=== PATIENT | male | born 1965 | race Caucasian/White ===

== ENCOUNTER → 2020-03-14 | Outpatient (CLI) | payer OTHER, SELFPAY ==
[2020-03-14 16:34] VITALS: BMI 32.8
[2020-03-14 22:27] LABS: ALB/GLOB Ratio 1.4 RATIO (0.9-2.4); AST(SGOT) 17 U/L (15-37); Alanine Aminotransfer ALT/SGPT 36 U/L (16-61); Albumin, Serum 4.2 g/dL (3.2-5.0); Alkaline Phosphatase 69 U/L (45-117); Anion Gap 4 (5-15); BUN 13 mg/dL (7-18); BUN/Creat Ratio 15.6 RATIO (10-20); Calcium,Total 9.1 mg/dL (8.5-10.1); Chloride 106 mmol/L (98-107); Cholesterol 238 mg/dL (200); Creatinine, Serum 0.84 mg/dL (0.70-1.30); EST Glomerular Filtration Rate 101 mL/min (>60); Est Glom Filt Rate - Afr Amer 122 mL/min (>60); Globulin 2.9 g/dL (2.2-4.2); Glucose 108 mg/dL (74-106); High Density Lipoprotein 26 mg/dL; Protein, Total 7.1 g/dL (6.4-8.2); Sodium Level 137 mmol/L (136-145); Triglycerides 383 mg/dL; Very Low Density Lipoprotein 77 mg/dL (5-40)
== END | disposition home or self-care (01) ==
PROVIDERS: Referring Provider Nurse Practitioner; Visit Provider Nurse Practitioner
DX: E78.1 Pure hyperglyceridemia (principal); I10 Essential (primary) hypertension
CPT/HCPCS: 80053; 80061

== ENCOUNTER → 2021-04-07 | Outpatient (CLI) | payer OTHER, SELFPAY ==
[2021-04-07 18:20] VITALS: BMI 33.4
[2021-04-07 22:32] LABS: Absolute Lymphocyte Count 2.08 X10^3/uL (0.83-4.51); Absolute Neutrophil Count 5.8 X10^3/uL (2.0-7.7); Basophil# 0.05 X10^3/uL; Basophil% 0.6 % (0-1); Eosinophil# 0.15 X10^3/uL; Eosinophils% 1.7 % (0-5); Hematocrit 46.4 % (40-54); Hemoglobin 15.5 g/dL (13.0-16.5); Lymphocyte # 2.08 X10^3/ul (0.83-4.51); Lymphocyte % 23.6 % (19-41); Mean Corp Hgb Conc 33.4 g/dL (32-36); Mean Corpuscular Hgb 30.9 pg (27.0-32.0); Mean Corpuscular Volume 92.6 fL (80-94); Mean Platelet Vol. 10.8 fl (6.2-12.0); Monocyte% 7.9 % (0-10); NRBC Flagged by Analyzer 0 % (0-5); Neutrophil # 5.82 X10^3/uL (2.7-7.7); Neutrophil % 65.9 % (47-70); Platelet Count 209 K/mm3 (150-450); RBC Distribution Width CV 11.9 % (11.6-14.6); RBC Distribution Width SD 40.9 fl (35.1-43.9); Red Blood Count 5.01 M/mm3 (4.6-6.2); White Blood Count 8.8 K/mm3 (4.4-11.0)
[2021-04-07 22:48] LABS: ALB/GLOB Ratio 1.2 RATIO (0.9-2.4); AST(SGOT) 22 U/L (15-37); Alanine Aminotransfer ALT/SGPT 45 U/L (16-61); Albumin, Serum 4.1 g/dL (3.2-5.0); Alkaline Phosphatase 72 U/L (45-117); Anion Gap 5 (5-15); BUN 15 mg/dL (7-18); BUN/Creat Ratio 16.5 RATIO (10-20); Calcium,Total 9.5 mg/dL (8.5-10.1); Chloride 109 mmol/L (98-107); Cholesterol 221 mg/dL (200); Creatinine, Serum 0.91 mg/dL (0.70-1.30); EST Glomerular Filtration Rate 91 mL/min (>60); Est Glom Filt Rate - Afr Amer 111 mL/min (>60); Globulin 3.3 g/dL (2.2-4.2); Glucose 117 mg/dL (74-106); High Density Lipoprotein 29 mg/dL; PSA,Total - Annual Screen 0.76 ng/mL (0.00-4.00); Potassium 4.1 mmol/L (3.5-5.1); Protein, Total 7.4 g/dL (6.4-8.2); Sodium Level 142 mmol/L (136-145); Triglycerides 278 mg/dL; Very Low Density Lipoprotein 56 mg/dL (5-40)
== END | disposition home or self-care (01) ==
PROVIDERS: Visit Provider Nurse Practitioner
DX: E78.1 Pure hyperglyceridemia (principal); R35.0 Frequency of micturition
CPT/HCPCS: 80053; 80061; 84153; 85025; G0103

== ENCOUNTER → 2022-04-20 | Outpatient (CLI) | payer BC, SELFPAY ==
[2022-04-20 22:18] LABS: Absolute Lymphocyte Count 2.78 X10^3/uL (0.83-4.51); Absolute Neutrophil Count 5.9 X10^3/uL (2.0-7.7); Basophil# 0.06 X10^3/uL; Basophil% 0.6 % (0-1); Eosinophil# 0.15 X10^3/uL; Eosinophils% 1.6 % (0-5); Hematocrit 46.5 % (40-54); Hemoglobin 15.9 g/dL (13.0-16.5); Lymphocyte # 2.78 X10^3/ul (0.83-4.51); Mean Corp Hgb Conc 34.2 g/dL (32-36); Mean Corpuscular Hgb 32.3 pg (27.0-32.0); Mean Corpuscular Volume 94.5 fL (80-94); Mean Platelet Vol. 11.9 fl (6.2-12.0); Monocyte# 0.62 X10^3/uL; Monocyte% 6.5 % (0-10); NRBC Flagged by Analyzer 0 % (0-5); Neutrophil # 5.93 X10^3/uL (2.7-7.7); Platelet Count 194 K/mm3 (150-450); RBC Distribution Width CV 12.3 % (11.6-14.6); RBC Distribution Width SD 42.8 fl (35.1-43.9); Red Blood Count 4.92 M/mm3 (4.6-6.2); White Blood Count 9.6 K/mm3 (4.4-11.0)
[2022-04-20 22:50] LABS: ALB/GLOB Ratio 1.3 RATIO (0.9-2.4); AST(SGOT) 21 U/L (15-37); Alanine Aminotransfer ALT/SGPT 40 U/L (16-61); Albumin, Serum 4.3 g/dL (3.2-5.0); Alkaline Phosphatase 70 U/L (45-117); Anion Gap 3 (5-15); BUN 13 mg/dL (7-18); BUN/Creat Ratio 13.2 RATIO (10-20); Calcium,Total 9.6 mg/dL (8.5-10.1); Chloride 109 mmol/L (98-107); Cholesterol 218 mg/dL (200); Creatinine, Serum 0.98 mg/dL (0.70-1.30); EST Glomerular Filtration Rate 83 mL/min (>60); Est Glom Filt Rate - Afr Amer 100 mL/min (>60); Globulin 3.2 g/dL (2.2-4.2); Glucose 106 mg/dL (74-106); High Density Lipoprotein 30 mg/dL; PSA,Total - Annual Screen 1.66 ng/mL (0.00-4.00); Potassium 3.8 mmol/L (3.5-5.1); Protein, Total 7.5 g/dL (6.4-8.2); Sodium Level 141 mmol/L (136-145); Triglycerides 231 mg/dL; Very Low Density Lipoprotein 46 mg/dL (5-40)
== END | disposition home or self-care (01) ==
PROVIDERS: Visit Provider Nurse Practitioner
DX: Z12.5 Encounter for screening for malignant neoplasm of prostate (principal); B35.1 Tinea unguium; I10 Essential (primary) hypertension; E78.1 Pure hyperglyceridemia; R35.0 Frequency of micturition
CPT/HCPCS: 80053; 80061; 84153; 85025; G0103

== ENCOUNTER → 2023-05-19 | Outpatient (CLI) | payer BC, SELFPAY ==
[2023-05-19 21:56] LABS: Absolute Lymphocyte Count 2.25 X10^3/uL (0.83-4.51); Absolute Neutrophil Count 5.7 X10^3/uL (2.0-7.7); Basophil# 0.04 X10^3/uL; Basophil% 0.5 % (0-1); Eosinophil# 0.15 X10^3/uL; Eosinophils% 1.7 % (0-5); Hematocrit 47.6 % (40-54); Hemoglobin 16.4 g/dL (13.0-16.5); Lymphocyte # 2.25 X10^3/ul (0.83-4.51); Lymphocyte % 25.3 % (19-41); Mean Corp Hgb Conc 34.5 g/dL (32-36); Mean Corpuscular Hgb 32.2 pg (27.0-32.0); Mean Corpuscular Volume 93.5 fL (80-94); Mean Platelet Vol. 10.9 fl (6.2-12.0); Monocyte# 0.69 X10^3/uL; Monocyte% 7.8 % (0-10); NRBC Flagged by Analyzer 0 % (0-5); Neutrophil # 5.72 X10^3/uL (2.7-7.7); Neutrophil % 64.4 % (47-70); Platelet Count 258 K/mm3 (150-450); RBC Distribution Width CV 11.9 % (11.6-14.6); RBC Distribution Width SD 41.1 fl (35.1-43.9); Red Blood Count 5.09 M/mm3 (4.6-6.2); White Blood Count 8.9 K/mm3 (4.4-11.0)
[2023-05-19 22:15] LABS: ALB/GLOB Ratio 1.3 RATIO (0.9-2.4); AST(SGOT) 17 U/L (15-37); Alanine Aminotransfer ALT/SGPT 35 U/L (16-61); Albumin, Serum 4.2 g/dL (3.2-5.0); Alkaline Phosphatase 72 U/L (45-117); Anion Gap 3 (5-15); BUN 17 mg/dL (7-18); BUN/Creat Ratio 14.8 RATIO (10-20); Calcium,Total 9.4 mg/dL (8.5-10.1); Chloride 110 mmol/L (98-107); Cholesterol 247 mg/dL (200); Creatinine, Serum 1.15 mg/dL (0.70-1.30); EST Glomerular Filtration Rate 69 mL/min (>60); Est Glom Filt Rate - Afr Amer 84 mL/min (>60); Globulin 3.3 g/dL (2.2-4.2); Glucose 112 mg/dL (74-106); High Density Lipoprotein 35 mg/dL; PSA,Total - Annual Screen 1.09 ng/mL (0.00-4.00); Protein, Total 7.5 g/dL (6.4-8.2); Sodium Level 140 mmol/L (136-145); Triglycerides 390 mg/dL; Very Low Density Lipoprotein 78 mg/dL (5-40)
== END | disposition home or self-care (01) ==
PROVIDERS: Visit Provider Nurse Practitioner
DX: I10 Essential (primary) hypertension (principal); E78.1 Pure hyperglyceridemia; R35.0 Frequency of micturition
CPT/HCPCS: 80053; 80061; 84153; 85025; G0103

== ENCOUNTER → 2023-12-28 | Outpatient (CLI) | payer BC, SELFPAY ==
[2023-12-28 20:29] LABS: Absolute Lymphocyte Count 1.76 X10^3/uL (0.83-4.51); Absolute Neutrophil Count 8.3 X10^3/uL (2.0-7.7); Basophil# 0.04 X10^3/uL; Basophil% 0.4 % (0-1); Eosinophil# 0.19 X10^3/uL; Eosinophils% 1.7 % (0-5); Hematocrit 46.4 % (40-54); Hemoglobin 15.6 g/dL (13.0-16.5); Lymphocyte # 1.76 X10^3/ul (0.83-4.51); Lymphocyte % 15.6 % (19-41); Mean Corp Hgb Conc 33.6 g/dL (32-36); Mean Corpuscular Hgb 30.5 pg (27.0-32.0); Mean Corpuscular Volume 90.8 fL (80-94); Mean Platelet Vol. 10.7 fl (6.2-12.0); Monocyte# 0.97 X10^3/uL; Monocyte% 8.6 % (0-10); NRBC Flagged by Analyzer 0 % (0-5); Neutrophil # 8.26 X10^3/uL (2.7-7.7); Neutrophil % 73.3 % (47-70); Platelet Count 198 K/mm3 (150-450); RBC Distribution Width CV 11.8 % (11.6-14.6); RBC Distribution Width SD 39.4 fl (35.1-43.9); Red Blood Count 5.11 M/mm3 (4.6-6.2); White Blood Count 11.3 K/mm3 (4.4-11.0)
[2023-12-28 20:59] LABS: ALB/GLOB Ratio 1.2 RATIO (0.9-2.4); AST(SGOT) 16 U/L (15-37); Alanine Aminotransfer ALT/SGPT 30 U/L (16-61); Alkaline Phosphatase 79 U/L (45-117); Anion Gap 5 (5-15); BUN 13 mg/dL (7-18); BUN/Creat Ratio 16.2 RATIO (10-20); Calcium,Total 9.2 mg/dL (8.5-10.1); Chloride 107 mmol/L (98-107); EST Glomerular Filtration Rate 105 mL/min (>60); Est Glom Filt Rate - Afr Amer 127 mL/min (>60); Globulin 3.2 g/dL (2.2-4.2); Glucose 129 mg/dL (74-106); Potassium 3.6 mmol/L (3.5-5.1); Protein, Total 7.2 g/dL (6.4-8.2); Sodium Level 138 mmol/L (136-145)
== END | disposition home or self-care (01) ==
PROVIDERS: PCP Nurse Practitioner; Visit Provider Nurse Practitioner
DX: K62.5 Hemorrhage of anus and rectum (principal); K64.9 Unspecified hemorrhoids; K57.92 Diverticulitis of intestine, part unspecified, without perforation or abscess without bleeding
CPT/HCPCS: 80053; 84443; 85025

== ENCOUNTER → 2024-09-11 | Outpatient (CLI) | payer BC, SELFPAY ==
[2024-09-11 22:02] LABS: Absolute Lymphocyte Count 1.96 X10^3/uL (0.83-4.51); Absolute Neutrophil Count 6.4 X10^3/uL (2.0-7.7); Basophil# 0.06 X10^3/uL; Basophil% 0.6 % (0-1); Eosinophil# 0.35 X10^3/uL; Eosinophils% 3.7 % (0-5); Hematocrit 45.2 % (40-54); Hemoglobin 15.4 g/dL (13.0-16.5); Lymphocyte # 1.96 X10^3/ul (0.83-4.51); Lymphocyte % 20.7 % (19-41); Mean Corp Hgb Conc 34.1 g/dL (32-36); Mean Corpuscular Volume 91.1 fL (80-94); Mean Platelet Vol. 11.2 fl (6.2-12.0); Monocyte# 0.68 X10^3/uL; Monocyte% 7.2 % (0-10); NRBC Flagged by Analyzer 0 % (0-5); Neutrophil # 6.38 X10^3/uL (2.7-7.7); Neutrophil % 67.5 % (47-70); Platelet Count 204 K/mm3 (150-450); RBC Distribution Width CV 11.9 % (11.6-14.6); RBC Distribution Width SD 39.9 fl (35.1-43.9); Red Blood Count 4.96 M/mm3 (4.6-6.2); White Blood Count 9.5 K/mm3 (4.4-11.0)
[2024-09-11 22:05] LABS: ALB/GLOB Ratio 1.4 RATIO (0.9-2.4); AST(SGOT) 14 U/L (15-37); Alanine Aminotransfer ALT/SGPT 26 U/L (16-61); Albumin, Serum 4.1 g/dL (3.2-5.0); Alkaline Phosphatase 70 U/L (45-117); Anion Gap 6 (5-15); BUN 16 mg/dL (7-18); BUN/Creat Ratio 19.8 RATIO (10-20); Calcium,Total 9.3 mg/dL (8.5-10.1); Chloride 107 mmol/L (98-107); Cholesterol 140 mg/dL (200); Creatinine, Serum 0.81 mg/dL (0.70-1.30); EST Glomerular Filtration Rate 103 mL/min (>60); Est Glom Filt Rate - Afr Amer 125 mL/min (>60); Globulin 2.9 g/dL (2.2-4.2); Glucose 124 mg/dL (74-106); High Density Lipoprotein 40 mg/dL; PSA,Total - Annual Screen 1.16 ng/mL (0.00-4.00); Potassium 3.8 mmol/L (3.5-5.1); Sodium Level 139 mmol/L (136-145); Triglycerides 231 mg/dL; Very Low Density Lipoprotein 46 mg/dL (5-40)
== END | disposition home or self-care (01) ==
PROVIDERS: PCP Nurse Practitioner; Referring Provider Nurse Practitioner; Visit Provider Nurse Practitioner
DX: I10 Essential (primary) hypertension (principal); E78.1 Pure hyperglyceridemia; R35.0 Frequency of micturition; Z12.5 Encounter for screening for malignant neoplasm of prostate
CPT/HCPCS: 80053; 80061; 84153; 85025; G0103

== ENCOUNTER → 2025-07-13 | Outpatient (CLI) | payer BC, SELFPAY ==
--- OUTSIDE RECORDS SUMMARY | 2025-07-13 21:48 | XMS RPT_ITS | CCD ---
Author Organization [facility] Inform ion [facility] Care Team Providers Care Customer Support Consultant Name Role Phone JP JUÁREZ Attending Juliette CHOWDHURY, IBIS Primary Care Unavailable MARQUITA, JP Attending Juliette CHOWDHURY, IBIS Primary Care Unavailable MARQUITA, JP Attending Juliette CHOWDHURY, IBIS Primary Care Unavailable MARQUITA, JP Attending Juliette CHOWDHURY, IBIS Primary Care Unavailable MARQUITA, JP Attending Juliette CHOWDHURY, IBIS Primary Care Unavailable MARQUITA, JP Attending Juliette CHOWDHURY, IBIS Primary Care Unavailable JAVIER HARMAN Attending Unavailable IBIS CHOWDHURY L Referring Unavailable Mak CONTR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, Ibis Attending Unavailable Mak CONTR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, Ibis Referring Unavailable Mak CONTR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, Ibis Primary Care Unavailable Mak CONTR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, Ibis Attending Unavailable Mak CONTR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, Ibis Primary Care Unavailable Medications Current Medications Medication Drug Class(es) Dates Sig (Normalized) Sig (Original) apple cider vinegar 500 mg oral tablet (2 sources) Start: 04-20-2022 Apple Cider Vinegar Active MG PO April 20, 2022 12:00am cefdinir 300 mg oral capsule (1 source) Cephalosporin Antibacterial Start: 12-28-2023 take 300 mg by mouth twice daily Cefdinir Active 300 MG PO TWICE A DAY December 28, 2023 12:00am 24 hr niacin 750 mg extended release oral tablet (2 sources) Nicotinic Acid Start: 07-28-2018 take 1 tablet by mouth every twenty-four hours at bedtime Niacin (Niaspan Extended-Release) 750 mg tablet extended release 24 hr Active 750 MG PO AT BEDTIME July 28, 2018 1:00am omeprazole 20 mg delayed release oral capsule (2 sources) Proton Pump Inhibitor Start: 07-28-2018 take 10 mg by mouth once daily Omeprazole Active 10 MG PO DAILY July 28, 2018 1:00am rosuvastatin calcium 10 mg oral tablet (1 source) HMG-CoA Reductase Inhibitor Start: 09-15-2023 take 10 mg by mouth once daily Rosuvastatin Active 10 MG PO DAILY 90 September 15, 2023 1:00am Completed/Discontinued Medications Medication Drug Class(es) Dates Sig (Normalized) Sig (Original) [id number] 200 actuat albuterol 0.09 mg/actuat metered dose inhaler (4 sources) beta2-Adrenergic Agonist Start: 01-15-2021 End: 05-19-2023 take 1 puff(s) by inhalation every four hours Albuterol Sulfate (Ventolin Hfa) 90 mcg/actuation HFA aerosol inhaler Discontinued 2 PUFF INHALATION Q4H 6.7 90 April 07, 2021 6:32pm May 19, 2023 5:01pm amLODIPine 5 mg oral tablet (14 sources) Dihydropyridine Calcium Channel Pretty Start: 07-28-2018 End: 05-19-2023 take 5 mg by mouth once daily Amlodipine Discontinued 5 MG PO DAILY April 20, 2022 5:38pm May 19, 2023 5:03pm amoxicillin 875 mg / clavulanate 125 mg oral tablet (10 sources) Penicillin-class Antibacterial Start: 03-29-2020 End: 04-07-2021 take 1 tablet by mouth twice daily Amoxicillin-Pot Clavulanate Discontinued 1 TABLET PO TWICE A DAY January 15, 2021 3:57pm April 07, 2021 6:21pm Start: 12-07-2018 End: 03-14-2020 take 1 tablet by mouth twice daily Amoxicillin-Pot Clavulanate Discontinued 1 TABLET PO TWICE A DAY December 07, 2018 5:01pm March 14, 2020 4:38pm Start: 07-28-2018 End: 11-02-2018 take 1 tablet by mouth twice daily Amoxicillin-Pot Clavulanate Discontinued 1 TABLET PO TWICE A DAY July 28, 2018 1:00am November 02, 2018 4:45pm azithromycin 250 mg oral tablet (2 sources) Macrolide Antimicrobial Start: 04-07-2021 End: 04-12-2021 Azithromycin Discontinued 250 MG PO daily 6 April 07, 2021 12:00am April 12, 2021 12:01am 2 po qd for 1 day then 1 po qd for 4 days with food or after eating fenofibrate 160 mg oral tablet (16 sources) Peroxisome Proliferator Receptor alpha Agonist Start: 07-28-2018 End: 09-15-2023 take 1 tablet by mouth once daily fenofibrate 160 mg tablet Discontinued 160 MG PO DAILY February 01, 2019 7:26pm March 01, 2019 6:02pm metroNIDAZOLE 250 mg oral tablet (1 source) Nitroimidazole Antimicrobial Start: 09-15-2023 End: 09-25-2023 take 250 mg by mouth three times daily Metronidazole Discontinued 250 MG PO THREE TIMES A DAY 28 06September 15, 2023 1:00am September 25, 2023 1:48am terbinafine 250 mg oral tablet (2 sources) Allylamine Antifungal Start: 04-20-2022 End: 05-19-2023 take 250 mg by mouth once daily Terbinafine Hcl Discontinued 250 MG PO DAILY April 20, 2022 12:00am May 19, 2023 5:02pm Problems Active Problems Problem Classification Problem Date Documented Da te Episodic/Chronic Abdominal pain (1 source) Lower abdominal pain; Translations: [Lower abdominal pain, unspecified] 09-15-2023 Episodic Anal and rectal conditions (2 sources) Incomplete rectal prolapse; Translations: [Rectal prolapse] 11-02-2018 Episodic Disorders of lipid metabolism (2 sources) Hypertriglyceridemi a; Translations: [Pure hyperglyceridemia] 03-01-2019 Chronic Diverticulosis and diverticulitis (1 source) Diverticulitis; Translations: [Diverticulitis of intestine, part unspecified, without perforation or abscess without bleeding] 09-15-2023 Chronic Essential hypertension (3 sources) Hypertensive disorder; Translations: [Essential (primary) hypertension] Onset: 10-02-2024 03-01-2019 Chronic Genitourinary symptoms and ill-defined conditions (2 sources) Increased frequency of urination; Translations: [Frequency of micturition] 04-07-2021 Episodic Hemorrhoids (1 source) Hemorrhoids; Translations: [Unspecified hemorrhoids] 12-29-2023 Episodic Mycoses (2 sources) Onychomycosis; Translations: [Tinea unguium] 04-20-2022 Episodic Other connective tissue disease (1 source) Plantar fasciitis; Translations: [Plantar fascial fibromatosis] 05-20-2023 Episodic Other connective tissue disease (2 sources) Foot pain; Translations: [Pain in left foot] 05-20-2023 Episodic Other connective tissue disease (1 source) Plantar fasciitis of right foot; Translations: [Plantar fascial fibromatosis] 05-20-2023 Episodic Other ear and sense organ disorders (2 sources) Pain of ear structure; Translations: [Otalgia, unspecified ear] 03-29-2020 Episodic Other lower respiratory disease (2 sources) Cough; Translations: [Cough] 12-07-2018 Episodic Other upper respiratory infections (2 sources) Maxillary sinusitis; Translations: [Chronic maxillary sinusitis] 12-07-2018 Chronic Other upper respiratory infections (2 sources) Acute maxillary sinusitis; Translations: [Acute maxillary sinusitis, unspecified] 03-29-2020 Episodic Otitis media and related conditions (2 sources) Acute left otitis media; Translations: [Otitis media, unspecified, left ear] 07-28-2018 Episodic Past or Other Problems Problem Classification Problem Date Documented Da te Episodic/Chronic Gastrointestinal hemorrhage (4 sources) Rectal hemorrhage; Translations: [Hemorrhage of anus and rectum] Onset: 01-03-2024 11-02-2018 Episodic Unclassified (2 sources) 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, [address] Absolute Neut 6.4 X10 3/uL Normal 2.0-7.7 [facility] Comment on above: Performed By: #### L 501.9910, L500.4100, L500.4050, L100.0100 #### [facility] [address] [place], [address] Basophils/100 WBC (Bld) 0.6 % Normal 0-[address] [facility] Comment on above: Performed By: #### L 501.9910, L500.4100, L500.4050, L100.0100 #### [facility] [address] [place], [address] Eosinophils/100 WBC (Bld) 3.7 % Normal 0-5 [facility] Comment on above: Performed By: #### L 501.9910, L500.4100, L500.4050, L100.0100 #### [facility] [address] [place], [address] Erythrocyte distribution width (RBC) [Ratio] 11.9 % Normal 11.6-14.6 [facility] Comment on above: Performed By: #### L 501.9910, L500.4100, L500.4050, L100.0100 #### [facility] [address] [place], [address] Hematocrit (Bld) [Volume fraction] 45.2 % Normal 40-54 [facility] Comment on above: Performed By: #### L 501.9910, L500.4100, L500.4050, L100.0100 #### [facility] [address] [place], [address] Hemoglobin (Bld) [Mass/Vol] 15.4 g/dL Normal 13.0-16.5 [facility] Comment on above: Performed By: #### L 501.9910, L500.4100, L500.4050, L100.0100 #### [facility] [address] [place], [address] IG% 0.300 Normal 0.0-0.9 [facility] Comment on above: Result Comment: IG% - Immature Granulocytes (promyelocytes, myelocytes and metamyelocytes) > 1% indicates that a LEFT SHIFT is Present. Performed By: #### L 501.9910, L500.4100, L500.4050, L100.0100 #### [facility] [address] [place], [address] Lymphocytes/100 WBC (Bld) 20.7 % Normal 19-41 [facility] Comment on above: Performed By: #### L 501.9910, L500.4100, L500.4050, L100.0100 #### [facility] [address] [place], [address] MCH (RBC) [Entitic mass] 31.0 pg Normal 27.0-32.0 [facility] Comment on above: Performed By: #### L 501.9910, L500.4100, L500.4050, L100.0100 #### [facility] [address] [place], [address] MCHC (RBC) [Mass/Vol] 34.1 g/dL Normal 32-36 [facility] Comment on above: Performed By: #### L 501.9910, L500.4100, L500.4050, L100.0100 #### [facility] [address] [place], [address] MCV (RBC) [Entitic vol] 91.1 fL Normal 80-[address] [facility] Comment on above: Performed By: #### L 501.9910, L500.4100, L500.4050, L100.0100 #### [facility] [address] [place], [address] Monocytes/100 WBC (Bld) 7.2 % Normal 0-[address] [facility] Comment on above: Performed By: #### L 501.9910, L500.4100, L500.4050, L100.0100 #### [facility] [address] [place], [address] Neutrophils/100 WBC (Bld) 67.5 % Normal 47-70 [facility] Comment on above: Performed By: #### L 501.9910, L500.4100, L500.4050, L100.0100 #### [facility] [address] [place], [address] Nucleated RBC (Bld) [#/Vol] 0 10*3/uL Normal 0-5 [facility] Comment on above: Performed By: #### L 501.9910, L500.4100, L500.4050, L100.0100 #### [facility] [address] [place], [address] Platelet mean volume (Bld) [Entitic vol] 11.2 fL Normal 6.2-12.0 [facility] Comment on above: Performed By: #### L 501.9910, L500.4100, L500.4050, L100.0100 #### [facility] [address] [place], [address] Platelets (Bld) [#/Vol] 204 10*3/uL Normal 150-450 [facility] Comment on above: Performed By: #### L 501.9910, L500.4100, L500.4050, L100.0100 #### [facility] [address] [place], [address] RBC (Bld) [#/Vol] 4.96 10*6/uL Normal 4.6-6.2 [facility] Comment on above: Performed By: #### L 501.9910, L500.4100, L500.4050, L100.0100 #### [facility] [address] [place], [address] RDW SD 39.9 fl Normal 35.1-43.9 [facility] Comment on above: Performed By: #### L 501.9910, L500.4100, L500.4050, L100.0100 #### [facility] [address] [place], [address] WBC (Bld) [#/Vol] 9.5 10*3/uL Normal 4.4-11.0 [facility] Comment on above: Performed By: #### L 501.9910, L500.4100, L500.4050, L100.0100 #### [facility] [address] [place], [address] Comprehensive Metabolic Prof ilon 09-11-2024 Albumin [Mass/Vol] 4.1 g/dL Normal 3.2-5.0 [facility] Comment on above: Performed By: #### L 501.9910, L500.4100, L500.4050, L100.0100 #### [facility] [address] [place], [address] Albumin/Globulin [Mass ratio] 1.4 {ratio} Normal 0.9-2.4 [facility] Comment on above: Performed By: #### L 501.9910, L500.4100, L500.4050, L100.0100 #### [facility] [address] [place], [address] ALK P 70 U/L Normal 45-117 [facility] Comment on above: Performed By: #### L 501.9910, L500.4100, L500.4050, L100.0100 #### [facility] [address] [place], [address] ALT [Catalytic activity/Vol] 26 U/L Normal 16-61 [facility] Comment on above: Performed By: #### L 501.9910, L500.4100, L500.4050, L100.0100 #### [facility] [address] [place], [address] AST [Catalytic activity/Vol] 14 U/L Low 15-37 [facility] Comment on above: Performed By: #### L 501.9910, L500.4100, L500.4050, L100.0100 #### [facility] [address] [place], [address] Bilirubin [Mass/Vol] 0.30 mg/dL Normal 0.20-1.00 [facility] Comment on above: Result Comment: For patients on eltrombopag therapy, use of Dimension [place] TBIL is not recommended. Performed By: #### L 501.9910, L500.4100, L500.4050, L100.0100 #### [facility] [address] [place], [address] BUN/CRE 19.8 RATIO Normal 10-20 [facility] Comment on above: Performed By: #### L 501.9910, L500.4100, L500.4050, L100.0100 #### [facility] [address] [place], [address] CA,Total 9.3 mg/dL Normal 8.5-10.1 [facility] Comment on above: Performed By: #### L 501.9910, L500.4100, L500.4050, L100.0100 #### [facility] [address] [place], [address] Chloride [Moles/Vol] 107 mmol/L Normal 98-107 [facility] Comment on above: Performed By: #### L 501.9910, L500.4100, L500.4050, L100.0100 #### [facility] [address] [place], [address] CO2 [Moles/Vol] 27.0 mmol/L Normal 21.0-32.0 [facility] Comment on above: Performed By: #### L 501.9910, L500.4100, L500.4050, L100.0100 #### [facility] [address] [place], [address] Creatinine [Mass/Vol] 0.81 mg/dL Normal 0.70-1.30 [facility] Comment on above: Result Comment: The validity of the calculated GFR GFRAA in patients over 70 years has not been determined. Clinical correlation is essential. Performed By: #### L 501.9910, L500.4100, L500.4050, L100.0100 #### [facility] [address] [place], [address] EST GFR - AA 125 mL/min Normal >60 [facility] Comment on above: Result Comment: Afri can Swazi GFR Calc Performed By: #### L 501.9910, L500.4100, L500.4050, L100.0100 #### [facility] [address] [place], [address] GAP 6 Normal 5-15 [facility] Comment on above: Performed By: #### L 501.9910, L500.4100, L500.4050, L100.0100 #### [facility] [address] [place], [address] GFR/1.73 sq M.predicted among non-blacks MDRD (S/P/Bld) [Vol rate/Area] 103 mL/min/{1.73_m2} Normal >60 [facility] Comment on above: Result Comment: Non- GFR Calc Performed By: #### L 501.9910, L500.4100, L500.4050, L100.0100 #### [facility] [address] [place], [address] Globulin (S) [Mass/Vol] 2.9 g/dL Normal 2.2-4.2 [facility] Comment on above: Performed By: #### L 501.9910, L500.4100, L500.4050, L100.0100 #### [facility] [address] [place], [address] Glucose [Mass/Vol] 124 mg/dL High 74-106 [facility] Comment on above: Result Comment: Fast ing Glucose result from 100 to 125 mg/dL suggests IMPAIRED HOMEOSTASIS per A.D.A. criteria. Performed By: #### L 501.9910, L500.4100, L500.4050, L100.0100 #### [facility] [address] [place], [address] Potassium [Moles/Vol] 3.8 mmol/L Normal 3.5-5.1 [facility] Comment on above: Performed By: #### L 501.9910, L500.4100, L500.4050, L100.0100 #### [facility] [address] [place], [address] Sodium [Moles/Vol] 139 mmol/L Normal 136-145 [facility] Comment on above: Performed By: #### L 501.9910, L500.4100, L500.4050, L100.0100 #### [facility] [address] [place], [address] T PROT 7.0 g/dL Normal 6.4-8.2 [facility] Comment on above: Performed By: #### L 501.9910, L500.4100, L500.4050, L100.0100 #### [facility] [address] [place], [address] Urea nitrogen [Mass/Vol] 16 mg/dL Normal 7-18 [facility] Comment on above: Performed By: #### L 501.9910, L500.4100, L500.4050, L100.0100 #### [facility] [address] [place], [address] Lipid Profileon 09-11-2024 Cholesterol [Mass/Vol] 140 mg/dL Normal 200 [facility] Comment on above: Result Comment: <200 mg/dL Desirable 200-240 mg/dL Borderline >240 mg/dL High Risk Performed By: #### L 501.9910, L500.4100, L500.4050, L100.0100 #### [facility] [address] [place], [address] Cholesterol in HDL [Mass/Vol] 40 mg/dL Normal [facility] Comment on above: Result Comment: The drugs N-Acetylcysteine and Metamizole may falsely depress this assay. Reference Range HDL <40 mg/dL Low HDL Cholesterol HDL >or= 60 mg/dL High HDL Cholesterol Performed By: #### L 501.9910, L500.4100, L500.4050, L100.0100 #### [facility] [address] [place], [address] Cholesterol in LDL [Mass/Vol] 54 mg/dL Normal 0-130 [facility] Comment on above: Performed By: #### L 501.9910, L500.4100, L500.4050, L100.0100 #### [facility] [address] [place], [address] Cholesterol in VLDL [Mass/Vol] 46 mg/dL High 5-40 [facility] Comment on above: Performed By: #### L 501.9910, L500.4100, L500.4050, L100.0100 #### [facility] [address] [place], [address] Triglyceride [Mass/Vol] 231 mg/dL High [facility] Comment on above: Result Comment: The drugs N-Acetylcysteine and Metamizole may falsely depress this assay. Serum Triglycerides Reference Interval Normal <150 mg/dL Borderline high 150 - 199 mg/dL High 200 - 499 mg/dL Very High > or = 500 mg/dL Performed By: #### L 501.9910, L500.4100, L500.4050, L100.0100 #### [facility] [address] [place], [address] PSA,Total - Annual Screenon 09-11-2024 PSA,TOT SCREEN 1.16 ng/mL Normal 0.00-4.00 [facility] Comment on above: Result Comment: This test was performed using the TPSA assay method for the [employer] chemistry system. Values obtained with different assay methods cannot be used interchangably. When changing PSA assays in the course of monitoring a patient, additional sequential testing should be carried out to confirm baseline values. Performed By: #### L 501.9910, L500.4100, L500.4050, L100.0100 #### [facility] [address] [place], [address] Absolute lymphocyte countOrd ered By: Ibis Chowdhury on 12-28-2023 Lymphocytes Auto (Unsp spec) [#/Vol] 1.76 10*3/uL 0.83-4.51 [facility] Automated lymphocyte count a s percentage of total leukocytesOrdered By: Ibis Chowdhury on 12-28-2023 Lymphocytes/100 WBC Auto (Unsp spec) 15.6 % 19-41 [facility] Basophil percentageOrdered B y: Ibis Chowdhury on 12-28-2023 Basophils/100 WBC (Bld) 0.4 % 0-[address] [facility] Bilirubin [Mass/Vol] 0.50 mg/dL 0.20-1.00 [facility] Comment on above: For patients on eltr ombopag therapy, use of Dimension [place] TBIL is not recommended. Chloride [Moles/Vol] 107 mmol/L 98-107 [facility] Eosinophils/100 WBC (Bld) 1.7 % 0-5 [facility] Glucose [Mass/Vol] 129 mg/dL 74-106 [facility] Comment on above: Fasting Glucose resu lt greater than or equal to 126 mg/dL suggests DIABETES MELLITUS per A.D.A. criteria. Hemoglobin (Bld) [Mass/Vol] 15.6 g/dL 13.0-16.5 [facility] Monocytes/100 WBC (Bld) 8.6 % 0-[address] [facility] Neutrophils (Bld) [#/Vol] 8.3 10*3/uL 2.0-7.7 [facility] Neutrophils/100 WBC (Bld) 73.3 % 47-70 [facility] Potassium [Moles/Vol] 3.6 mmol/L 3.5-5.1 [facility] Protein [Mass/Vol] 7.2 g/dL 6.4-8.2 [facility] Sodium [Moles/Vol] 138 mmol/L 136-145 [facility] WBC (Bld) [#/Vol] 11.3 10*3/uL 4.4-11.0 [facility] CBC W/Diff, Automatedon -3 0-2023 Absolute Lymph 1.76 X10 3/uL Normal 0.83-4.51 [facility] Comment on above: Performed By: #### L 100.0100, L501.9520, L500.4050 #### [facility] [address] [place], [address] Absolute Neut 8.3 X10 3/uL High 2.0-7.7 [facility] Comment on above: Performed By: #### L 100.0100, L501.9520, L500.4050 #### [facility] [address] [place], [address] Basophils/100 WBC (Bld) 0.4 % Normal 0-[address] [facility] Comment on above: Performed By: #### L 100.0100, L501.9520, L500.4050 #### [facility] [address] [place], [address] Eosinophils/100 WBC (Bld) 1.7 % Normal 0-5 [facility] Comment on above: Performed By: #### L 100.0100, L501.9520, L500.4050 #### [facility] [address] [place], [address] Erythrocyte distribution width (RBC) [Ratio] 11.8 % Normal 11.6-14.6 [facility] Comment on above: Performed By: #### L 100.0100, L501.9520, L500.4050 #### [facility] [address] [place], [address] Hematocrit (Bld) [Volume fraction] 46.4 % Normal 40-54 [facility] Comment on above: Performed By: #### L 100.0100, L501.9520, L500.4050 #### [facility] [address] [place], [address] Hemoglobin (Bld) [Mass/Vol] 15.6 g/dL Normal 13.0-16.5 [facility] Comment on above: Performed By: #### L 100.0100, L501.9520, L500.4050 #### [facility] [address] [place], [address] IG% 0.400 Normal 0.0-0.9 [facility] Comment on above: Result Comment: IG% - Immature Granulocytes (promyelocytes, myelocytes and metamyelocytes) > 1% indicates that a LEFT SHIFT is Present. Performed By: #### L 100.0100, L501.9520, L500.4050 #### [facility] [address] [place], [address] Lymphocytes/100 WBC (Bld) 15.6 % Low 19-41 [facility] Comment on above: Performed By: #### L 100.0100, L501.9520, L500.4050 #### [facility] Laboratory [address] [place], [address] MCH (RBC) [Entitic mass] 30.5 pg Normal 27.0-32.0 [facility] Comment on above: Performed By: #### L 100.0100, L501.9520, [id number] #### [facility] Laboratory [address] [place], [address] MCHC (RBC) [Mass/Vol] 33.6 g/dL Normal 32-36 [facility] Comment on above: Performed By: #### L 100.0100, L501.9520, [id number] #### [facility] Laboratory [address] [place], [address] MCV (RBC) [Entitic vol] 90.8 fL Normal 80-[address] [facility] Comment on above: Performed By: #### L 100.0100, L501.9520, [id number] #### [facility] Laboratory [address] [place], [address] Monocytes/100 WBC (Bld) 8.6 % Normal 0-10 [facility] Comment on above: Performed By: #### L 100.0100, L501.9520, [id number] #### [facility] Laboratory [address] [place], [address] Neutrophils/100 WBC (Bld) 73.3 % High 47-70 [facility] Comment on above: Performed By: #### L 100.0100, L501.9520, [id number] #### [facility] Laboratory [address] [place], [address] Nucleated RBC (Bld) [#/Vol] 0 10*3/uL Normal 0-5 [facility] Comment on above: Performed By: #### L 100.0100, L501.9520, [id number] #### [facility] Laboratory [address] [place], [address] Platelet mean volume (Bld) [Entitic vol] 10.7 fL Normal 6.2-12.0 [facility] Comment on above: Performed By: #### L 100.0100, L501.9520, [id number] #### [facility] Laboratory [address] [place], [address] Platelets (Bld) [#/Vol] 198 10*3/uL Normal 150-450 [facility] Comment on above: Performed By: #### L 100.0100, L501.9520, [id number] #### [facility] Laboratory [address] [place], [address] RBC (Bld) [#/Vol] 5.11 10*6/uL Normal 4.6-6.2 [facility] Comment on above: Performed By: #### L 100.0100, L501.9520, [id number] #### [facility] Laboratory [address] [place], [address] RDW SD 39.4 fl Normal 35.1-43.9 [facility] Comment on above: Performed By: #### L 100.0100, L501.9520, [id number] #### [facility] Laboratory [address] [place], [address] WBC (Bld) [#/Vol] 11.3 10*3/uL High 4.4-11.0 [facility] Comment on above: Performed By: #### L 100.0100, L501.9520, [id number] #### [facility] Laboratory [address] [place], [address] Comprehensive Metabolic Prof [facility] 12-28-2023 Albumin [Mass/Vol] 4.0 g/dL Normal 3.2-5.0 [facility] Comment on above: Performed By: #### L 100.0100, L501.9520, [id number] #### [facility] Laboratory [address] [place], [address] Albumin/Globulin [Mass ratio] 1.2 {ratio} Normal 0.9-2.4 [facility] Comment on above: Performed By: #### L 100.0100, L501.9520, [id number] #### [facility] Laboratory [address] [place], [address] ALK P 79 U/L Normal 45-117 [facility] Comment on above: Performed By: #### L 100.0100, L501.9520, [id number] #### [facility] Laboratory [address] [place], [address] ALT [Catalytic activity/Vol] 30 U/L Normal 16-61 [facility] Comment on above: Performed By: #### L 100.0100, L501.9520, [id number] #### [facility] Laboratory [address] [place], [address] AST [Catalytic activity/Vol] 16 U/L Normal 15-37 [facility] Comment on above: Performed By: #### L 100.0100, L501.9520, [id number] #### [facility] Laboratory [address] [place], [address] Bilirubin [Mass/Vol] 0.50 mg/dL Normal 0.20-1.00 [facility] Comment on above: Result Comment: For patients on eltrombopag therapy, use of Dimension [place] TBIL is not recommended. Performed By: #### L 100.0100, L501.9520, [id number] #### [facility] Laboratory [address] [place], [address] BUN/CRE 16.2 RATIO Normal 10-20 [facility] Comment on above: Performed By: #### L 100.0100, L501.9520, [id number] #### [facility] Laboratory [address] [place], [address] CA,Total 9.2 mg/dL Normal 8.5-10.1 [facility] Comment on above: Performed By: #### L 100.0100, L501.9520, [id number] #### [facility] Laboratory [address] [place], [address] Chloride [Moles/Vol] 107 mmol/L Normal 98-107 [facility] Comment on above: Performed By: #### L 100.0100, L501.9520, [id number] #### [facility] Laboratory [address] [place], [address] CO2 [Moles/Vol] 26.0 mmol/L Normal 21.0-32.0 [facility] Comment on above: Performed By: #### L 100.0100, L501.9520, [id number] #### [facility] Laboratory [address] [place], [address] Creatinine [Mass/Vol] 0.80 mg/dL Normal 0.70-1.30 [facility] Comment on above: Result Comment: The validity of the calculated GFR GFRAA in patients over 70 years has not been determined. Clinical correlation is essential. Performed By: #### L 100.0100, L501.9520, [id number] #### [facility] Laboratory [address] [place], [address] EST GFR - AA 127 mL/min Normal >60 [facility] Comment on above: Result Comment: Afri can Swazi GFR Calc Performed By: #### L 100.0100, L501.9520, [id number] #### [facility] Laboratory [address] [place], [address] GAP 5 Normal 5-15 [facility] Comment on above: Performed By: #### L 100.0100, L501.9520, [id number] #### [facility] Laboratory [address] [place], [address] GFR/1.73 sq M.predicted among non-blacks MDRD (S/P/Bld) [Vol rate/Area] 105 mL/min/{1.73_m2} Normal >60 [facility] Comment on above: Result Comment: Non- GFR Calc Performed By: #### L 100.0100, L501.9520, [id number] #### [facility] Laboratory [address] [place], [address] Globulin (S) [Mass/Vol] 3.2 g/dL Normal 2.2-4.2 [facility] Comment on above: Performed By: #### L 100.0100, L501.9520, [id number] #### [facility] Laboratory [address] [place], [address] Glucose [Mass/Vol] 129 mg/dL High 74-106 [facility] Comment on above: Result Comment: Fast ing Glucose result greater than or equal to 126 mg/dL suggests DIABETES MELLITUS per A.D.A. criteria. Performed By: #### L 100.0100, L501.9520, [id number] #### [facility] Laboratory [address] [place], [address] Potassium [Moles/Vol] 3.6 mmol/L Normal 3.5-5.1 [facility] Comment on above: Performed By: #### L 100.0100, L501.9520, [id number] #### [facility] Laboratory [address] [place], [address] Sodium [Moles/Vol] 138 mmol/L Normal 136-145 [facility] Comment on above: Performed By: #### L 100.0100, L501.9520, [id number] #### [facility] Laboratory [address] [place], [address] T PROT 7.2 g/dL Normal 6.4-8.2 [facility] Comment on above: Performed By: #### L 100.0100, L501.9520, [id number] #### [facility] Laboratory [address] [place], [address] Urea nitrogen [Mass/Vol] 13 mg/dL Normal 7-18 [facility] Comment on above: Performed By: #### L 100.0100, L501.9520, [id number] #### [facility] Laboratory [address] [place], [place], [address] Determination of erythrocyte mean corpuscular volume (MCV)Ordered By: Ibis Chowdhury on 12-28-2023 MCV (RBC) [Entitic vol] 90.8 fL 80-[address] [facility] Erythrocyte distribution wid th ratioOrdered By: Ibis Chowdhury on 12-28-2023 Erythrocyte distribution width (RBC) [Ratio] 11.8 % 11.6-14.6 [facility] Erythrocyte distribution wid th standard deviationOrdered By: Ibis Chowdhury on 12-28-2023 Erythrocyte distribution width (RBC) [Entitic vol] 39.4 fL 35.1-43.9 [facility] Hematocrit Auto (Bld) [Volum e fraction]Ordered By: Ibis Chowdhury on 12-28-2023 Hematocrit (Bld) [Volume fraction] 46.4 % 40-54 [facility] Immature granulocytes/100 WB C Auto (Bld)Ordered By: Ibis Chowdhury on 12-28-2023 Immature granulocytes/100 WBC (Bld) 0.400 % 0.0-0.9 [facility] Comment on above: IG% - Immature Granu locytes (promyelocytes, myelocytes and metamyelocytes) > 1% indicates that a LEFT SHIFT is Present. Laboratory - Chemistry and C hemistry - challengeOrdered By: Ibis Chowdhury on 12-28-2023 Albumin/Globulin [Mass ratio] 1.2 {ratio} 0.9-2.4 [facility] ALP [Catalytic activity/Vol] 79 U/L 45-117 [facility] ALT [Catalytic activity/Vol] 30 U/L 16-61 [facility] CO2 [Moles/Vol] 26.0 mmol/L 21.0-32.0 [facility] Globulin (S) [Mass/Vol] 3.2 g/dL 2.2-4.2 [facility] Urea nitrogen/Creatinine [Mass ratio] 16.2 mg/mg 10-20 [facility] Laboratory - Hematology and Cell countsOrdered By: Ibis Chowdhury on 12-28-2023 MCH (RBC) [Entitic mass] 30.5 pg 27.0-32.0 [facility] MCHC (RBC) [Mass/Vol] 33.6 g/dL 32-36 [facility] Nucleated RBC/100 WBC (Bld) [Ratio] 0 % 0-5 [facility] Platelet mean volume (Bld) [Entitic vol] 10.7 fL 6.2-12.0 [facility] Platelets (Bld) [#/Vol] 198 10*3/uL 150-450 [facility] No Panel InformationOrdered By: Ibis Chowdhury on 12-28-2023 Estimated GFR (MDRD) Amer 127 mL/min >60 [facility] Comment on above: GFR Calc Estimated GFR (MDRD) Non-Af Amer 105 mL/min >60 [facility] Comment on above: Non- GFR Calc RBC Auto (Bld) [#/Vol]Ordere d By: Ibis Chowdhury on 12-28-2023 RBC (Bld) [#/Vol] 5.11 10*6/uL 4.6-6.2 [facility] Serum or plasma calcium yudy urement (mass/volume)Ordered By: Ibis Chowdhury on 12-28-2023 Calcium [Mass/Vol] 9.2 mg/dL 8.5-10.1 [facility] Serum or plasma creatinine m easurement (mass/volume)Ordered By: Ibis Chowdhury on 12-28-2023 Creatinine [Mass/Vol] 0.80 mg/dL 0.70-1.30 [facility] Comment on above: The validity of the calculated GFR & GFRAA in patients over 70 years has not been determined. Clinical correlation is essential. Serum or plasma thyroid stim ulating hormone (TSH) measurement (units/volume)Ordered By: Ibis Chowdhury on 12-28-2023 TSH Qn 2.10 uIU/mL 0.358-3.74 [facility] Serum or plasma urea nitroge n measurement (mass/volume)Ordered By: Ibis Chowdhury on 12-28-2023 Urea nitrogen [Mass/Vol] 13 mg/dL 7-18 [facility] Thin prep Papanicolaou smear with manual screeningOrdered By: Ibis Chowdhury on 12-28-2023 Thin prep Papanicolaou smear with manual screening 4.0 g/dL 3.2-5.0 [facility] Thin prep Papanicolaou smear with manual screening 16 U/L 15-37 [facility] Thin prep Papanicolaou smear with manual screening 5 5-15 [facility] Thyroid Stim Hormone (TSH)on 12-28-2023 TSH 2.10 uIU/mL Normal 0.358-3.74 [facility] Comment on above: Performed By: #### L 100.0100, L501.9520, L500.4050 #### [facility] Laboratory [address] [place], [address] Absolute lymphocyte countOrd ered By: Ibis Chowdhury on 05-19-2023 Lymphocytes Auto (Unsp spec) [#/Vol] 2.25 10*3/uL 0.83-4.51 [facility] Basophil percentageOrdered B y: Ibis Chowdhury on 05-19-2023 Basophils/100 WBC (Bld) 0.5 % 0-1 [facility] Bilirubin [Mass/Vol] 0.30 mg/dL 0.20-1.00 [facility] Comment on above: For patients on eltr ombopag therapy, use of Dimension [place] TBIL is not recommended. Chloride [Moles/Vol] 110 mmol/L 98-107 [facility] Cholesterol [Mass/Vol] 247 mg/dL <200 [facility] Comment on above: <200 mg/dL Desirable 200-240 mg/dL Borderline >240 mg/dL High Risk Eosinophils/100 WBC (Bld) 1.7 % 0-5 [facility] Glucose [Mass/Vol] 112 mg/dL 74-106 [facility] Comment on above: Fasting Glucose resu lt from 100 to 125 mg/dL suggests IMPAIRED HOMEOSTASIS per A.D.A. criteria. Neutrophils (Bld) [#/Vol] 5.7 10*3/uL 2.0-7.7 [facility] Neutrophils/100 WBC (Bld) 64.4 % 47-70 [facility] Potassium [Moles/Vol] 4.0 mmol/L 3.5-5.1 [facility] Protein [Mass/Vol] 7.5 g/dL 6.4-8.2 [facility] Sodium [Moles/Vol] 140 mmol/L 136-145 [facility] Triglyceride [Mass/Vol] 390 mg/dL <[address] [facility] Comment on above: The drugs N-Acetylcy steine and Metamizole may falsely depress this assay.Serum Triglycerides Reference Interval Normal <150 mg/dL Borderline high 150 - 199 mg/dL High 200 - 499 mg/dL Very High > or = 500 mg/dL WBC (Bld) [#/Vol] 8.9 10*3/uL 4.4-11.0 [facility] Blood erythrocytes count (nu mber/volume)Ordered By: Ibis Chowdhury on 05-19-2023 RBC (Bld) [#/Vol] 5.09 10*6/uL 4.6-6.2 [facility] Blood hemoglobin measurement (mass/volume)Ordered By: Ibis Chowdhury on 05-19-2023 Hemoglobin (Bld) [Mass/Vol] 16.4 g/dL 13.0-16.5 [facility] Blood lymphocytes/100 leukoc ytesOrdered By: Ibis Chowdhury on 05-19-2023 Lymphocytes/100 WBC (Bld) 25.3 % 19-41 [facility] Blood monocytes/100 leukocyt esOrdered By: Ibis Chowdhury on 05-19-2023 Monocytes/100 WBC (Bld) 7.8 % 0-[address] [facility] Blood platelet mean volumeOr dered By: Ibis Chowdhury on 05-19-2023 Platelet mean volume (Bld) [Entitic vol] 10.9 fL 6.2-12.0 [facility] Determination of erythrocyte mean corpuscular volume (MCV)Ordered By: Ibis Chowdhury on 05-19-2023 MCV (RBC) [Entitic vol] 93.5 fL 80-[address] [facility] Hematocrit Auto (Bld) [Volum e fraction]Ordered By: Ibis Chowdhury on 05-19-2023 Hematocrit (Bld) [Volume fraction] 47.6 % 40-54 [facility] Laboratory - Chemistry and C hemistry - challengeOrdered By: Ibis Chowdhury on 05-19-2023 ALP [Catalytic activity/Vol] 72 U/L 45-117 [facility] ALT [Catalytic activity/Vol] 35 U/L 16-61 [facility] CO2 [Moles/Vol] 27.0 mmol/L 21.0-32.0 [facility] Globulin (S) [Mass/Vol] 3.3 g/dL 2.2-4.[address] [facility] Urea nitrogen/Creatinine [Mass ratio] 14.8 mg/mg 10-20 [facility] Laboratory - Hematology and Cell countsOrdered By: Ibis Chowdhury on 05-19-2023 Erythrocyte distribution width (RBC) [Entitic vol] 41.1 fL 35.1-43.9 [facility] Erythrocyte distribution width (RBC) [Ratio] 11.9 % 11.6-14.6 [facility] Immature granulocytes/100 WBC (Bld) 0.300 % 0.0-0.9 [facility] Comment on above: IG% - Immature Granu locytes (promyelocytes, myelocytes and metamyelocytes) > 1% indicates that a LEFT SHIFT is Present. MCH (RBC) [Entitic mass] 32.2 pg 27.0-32.0 [facility] Nucleated RBC/100 WBC (Bld) [Ratio] 0 % 0-5 [facility] MCHC Auto (RBC) [Mass/Vol]Or dered By: Ibis Chowdhury on 05-19-2023 MCHC (RBC) [Mass/Vol] 34.5 g/dL 32-36 [facility] No Panel InformationOrdered By: Ibis Chowdhury on 05-19-2023 Estimated GFR (MDRD) Amer 84 mL/min >60 [facility] Comment on above: GFR Calc Estimated GFR (MDRD) Non-Af Amer 69 mL/min >60 [facility] Comment on above: Non- GFR Calc Prostate Specific Antigen Screen 1.09 ng/mL 0.00-4.00 [facility] Comment on above: This test was perfor med using the TPSA assay method for the[employer]ful chemistry system. Values obtained with differentassay methods cannot be used interchangably.When changing PSA assays in the course of monitoring apatient, additional sequential testing should be carriedout to confirm baseline values. Platelets bldOrdered By: Brandyn Chowdhury on 05-19-2023 Platelets (Bld) [#/Vol] 258 10*3/uL 150-450 [facility] Serum or plasma albumin yudy urement (mass/volume)Ordered By: Ibis Chowdhury on 05-19-2023 Albumin [Mass/Vol] 4.2 g/dL 3.2-5.0 [facility] Serum or plasma albumin/glob ulin mass ratioOrdered By: Ibis Chowdhury on 05-19-2023 Albumin/Globulin [Mass ratio] 1.3 {ratio} 0.9-2.4 [facility] Serum or plasma calcium yudy urement (mass/volume)Ordered By: Ibis Chowdhury on 05-19-2023 Calcium [Mass/Vol] 9.4 mg/dL 8.5-10.1 [facility] Serum or plasma cholesterol in HDL measurement (mass/volume)Ordered By: Ibis Chowdhury on 05-19-2023 Cholesterol in HDL [Mass/Vol] 35 mg/dL >40 [facility] Comment on above: The drugs N-Acetylcy steine and Metamizole may falsely depress this assay. Reference Range HDL <40 mg/dL Low HDL Cholesterol HDL >or= 60 mg/dL High HDL Cholesterol Serum or plasma cholesterol in VLDL measurement (mass/volume)Ordered By: Ibis Chowdhury on 05-19-2023 Cholesterol in VLDL [Mass/Vol] 78 mg/dL 5-40 [facility] Serum or plasma creatinine m easurement (mass/volume)Ordered By: Ibis Chowdhury on 05-19-2023 Creatinine [Mass/Vol] 1.15 mg/dL 0.70-1.30 [facility] Comment on above: The validity of the calculated GFR & GFRAA in patients over 70 years has not been determined. Clinical correlation is essential. Serum or plasma low density lipoprotein (LDL) cholesterol measurement (mass/volume)Ordered By: Ibis Chowdhury on 05-19-2023 Cholesterol in LDL [Mass/Vol] 134 mg/dL 0-130 [facility] Serum or plasma urea nitroge n measurement (mass/volume)Ordered By: Ibis Chowdhury on 05-19-2023 Urea nitrogen [Mass/Vol] 17 mg/dL 7-18 [facility] Thin prep Papanicolaou smear with manual screeningOrdered By: Ibis Chowdhury on 05-19-2023 Thin prep Papanicolaou smear with manual screening 17 U/L 15-37 [facility] Thin prep Papanicolaou smear with manual screening 3 5-15 [facility] Amb Office-Progress Notes-Errol batres 04-02-2018 Protein mass conc Patient: MANDEEP WASHINGTON Age: 52 years Sex: Male : 1965 Associated Diagnoses: None Author: MARQUITA VILLA, [facility] Visit Information Visit type: Scheduled follow-up. Accompanied by: No one. Source of history: Self. History limitation: None. Chief Complaint History of Present Illness Mandeep is here for follow-up for his chest pain, hypertension and hyperlipidemia. He had a negative stress test and his ejection fraction is 66 percent and he has trace mitral and aortic incompetence. He still weighs 221 pounds and had a long discussion with him about exercise and weight loss. He wants to watch his diet carefully. No more chest pain no shortness of breath or lightheadedness. Review of Systems Constitutional: Negative. Eye: Negative. Ear/Nose/Mouth/Thro at: Negative. Respiratory: No shortness of breath, No cough, No wheezing. Cardiovascular: No chest pain, No palpitations, No peripheral edema. Gastrointestinal: No nausea, No vomiting, No heartburn, No abdominal pain. Genitourinary: Negative. Hematology/Lymphati cs: Negative. Endocrine: Negative. Immunologic: Negative. Musculoskeletal: Negative. Integumentary: Negative. Psychiatric: Negative. Health Status Allergies: Allergic Reactions (All) No Known Medication Allergies, Allergies (1) Active Reaction No Known Medication Allergies None Documented Current medications: (Selected) Documented Medications Documented PriLOSEC 10 mg oral delayed release capsule: 10 mg = 1 caps, ORAL, DAILY, 90 caps, 0 Refill(s) amLODIPine: 5 mg, ORAL, DAILY, 0 Refill(s) fenofibrate: ORAL, DAILY, 0 Refill(s) niacin: ORAL, 0 Refill(s) Problem list: Active Problems (3) Chest pain HLD (hyperlipidemia) HTN (hypertension) Histories Past Medical History: No qualifying data available Family History: Mother Heart disease Procedure history: No active procedure history items have been selected or recorded. Social History Social & Psychosocial Habits Alcohol 02/23/2018 Risk Assessment: Denies Alcohol Use 02/23/2018 Use: Current Other 02/23/2018 Name: alex Comment: 2 cups coffee daily - 02/23/2018 15:49 - Ngoc PITTS, Rebecca Garcia Substance Abuse 02/23/2018 Risk Assessment: Denies Substance Abuse Tobacco 02/23/2018 Use: 5-9 cigarettes (between 1 . Physical Examination Temperature 98.4 (10:45) Systolic Blood Pressure No result Diastolic Blood Pressure No result Pulse 84 (10:45) SpO2 No result Respiratory Rate No result VS/Measurements Documented vital signs: Blood Pressure ( Systolic 134 mmHg, Diastolic 78 mmHg ) General: Alert and oriented, No acute distress. Eye: Normal conjunctiva, Vision unchanged. HENT: Normal hearing. Neck: Supple, Non-tender, No carotid bruit, No jugular venous distention, No lymphadenopathy. Respiratory: Lungs are clear to auscultation, Breath sounds are equal, Symmetrical chest wall expansion. Cardiovascular: Normal rate, No gallop, Good pulses equal in all extremities, Normal peripheral perfusion, No edema. Bruit: None. Gastrointestinal: Soft, Non-tender, Normal bowel sounds. Genitourinary: No costovertebral angle tenderness. Musculoskeletal: No tenderness, No swelling. Integumentary: Warm, Dry. Neurologic: Alert, Normal sensory, Normal motor function, Cranial Nerves II-XII are grossly intact. Review / Management No qualifying data available Impression and Plan 1.Noncardiac chest pain: Negative stress test 2.Hypertension 3.Hyperlipidemia 4.Continue current medications 5.Advised to cut down salt intake 6.Follow up in four months 7.Advised to watch his diet and exercise to lose weight. Normal [facility] Protein mass conc Patient: MANDEEP WASHINGTON Age: 52 years Sex: Male : 1965 Associated Diagnoses: None Author: MARQUITA VILLA, [facility] Visit Information Visit type: New symptom. Accompanied by: No one. Source of history: Self. History limitation: None. Chief Complaint History of Present Illness Narda erazo 52-year-old man with history of hypertension, hyperlipidemia,is here for cardiac evaluation for exertional chest tightness that has been going on for few days. He drinks 6-8 beers a day and he is a marks by occupation. He weighs 221 pounds and his blood pressure is 160/85. No prior myocardial infarctions stroke or PAD. No history of diabetes. No thyroid problems or COPD. Chest tightness comes at rest and not necessarily related to exertion. No orthopnea and no edema the legs. Review of Systems Constitutional: Negative. Eye: Negative. Ear/Nose/Mouth/Thro at: Negative. Respiratory: No shortness of breath, No cough, No wheezing. Cardiovascular: No chest pain, No palpitations, No peripheral edema. Gastrointestinal: No nausea, No vomiting, No heartburn, No abdominal pain. Genitourinary: Negative. Hematology/Lymphati cs: Negative. Endocrine: Negative. Immunologic: Negative. Musculoskeletal: Negative. Integumentary: Negative. Psychiatric: Negative. Health Status Allergies: Allergic Reactions (All) No Known Medication Allergies, Allergies (1) Active Reaction No Known Medication Allergies None Documented Current medications: (Selected) Documented Medications Documented PriLOSEC 10 mg oral delayed release capsule: 10 mg = 1 caps, ORAL, DAILY, 90 caps, 0 Refill(s) amLODIPine: 5 mg, ORAL, DAILY, 0 Refill(s) fenofibrate: ORAL, DAILY, 0 Refill(s) Problem list: Active Problems (3) Chest pain HLD (hyperlipidemia) HTN (hypertension) Histories Past Medical History: No qualifying data available Family History: Mother Heart disease Procedure history: No active procedure history items have been selected or recorded. Social History Social & Psychosocial Habits Alcohol 02/23/2018 Risk Assessment: Denies Alcohol Use 02/23/2018 Use: Current Other 02/23/2018 Name: caffiene Comment: 2 cups coffee daily - 02/23/2018 15:49 - Rebecca Grossman MA Substance Abuse 02/23/2018 Risk Assessment: Denies Substance Abuse Tobacco 02/23/2018 Use: 5-9 cigarettes (between 1 . Physical Examination No qualifying data available. VS/Measurements Documented vital signs: Blood Pressure ( Systolic 160 mmHg, Diastolic 85 mmHg ) General: Alert and oriented, No acute distress. Eye: Normal conjunctiva, Vision unchanged. HENT: Normal hearing. Neck: Supple, Non-tender, No carotid bruit, No jugular venous distention, No lymphadenopathy. Respiratory: Lungs are clear to auscultation, Breath sounds are equal, Symmetrical chest wall expansion. Cardiovascular: Normal rate, No gallop, Good pulses equal in all extremities, Normal peripheral perfusion, No edema. Bruit: None. Gastrointestinal: Soft, Non-tender, Normal bowel sounds. Genitourinary: No costovertebral angle tenderness. Musculoskeletal: No tenderness, No swelling. Integumentary: Warm, Dry. Neurologic: Alert, Normal sensory, Normal motor function, Cranial Nerves II-XII are grossly intact. Review / Management No qualifying data available Impression and Plan 1.Hypertension 2.Hyperlipidemia 3.New onset chest pain: Doesnt sound like classic angina 4.Will plan for stress test and echo 5.Continue current medications and follow up in two weeks 6.Advised to cut down salt intake. Normal [facility] Provider Letter - Ambulatory on 03-23-2018 Protein mass conc IBIS CHOWDHURY, [address] [facility] [address] [place] [address] RE: MANDEEP WASHINGTON - 1965 03/15/2018 Dear IBIS CHOWDHURY This document is confidential and intended solely for the use of the individual or entity to which they are addressed. If you are not the named addressee, please disregard and do not disseminate, distribute or copy this information. If you are not the intended recipient you are notified that any disclosure of this information and its contents are strictly prohibited. If you have any questions about this document, please contact the office. Sincerely, Rebecca Grossman MA [facility] The following document(s) were included in the letter: March 16, 2018 06:09:00 EDT - (03/16/2018) Stress Myocardial Perfusion Imaging March 15, 2018 12:52:00 EDT - (03/15/2018) Exercise Nuclear Stress Test Normal [facility] Stress Test Reporton 018 Stress Test Report Patient: MANDEEP WASHINGTON Age: 52 years Sex: Male : 1965 Associated Diagnoses: None Author: MARQUITA VILLA, JP Exam Indication: Chest pain Date of Exam: 03/15/2018 Referring Physician: Radha Foster Clinical History: 52 yr old man with couple of risk factors for CAD comes with exertional chest tightness Procedure: The supervising avionics safety inspector, Dr Hebert Smart, reviewed the patient's baseline ECG prior to starting the stress test. The patient performed treadmill exercise using the standard Cesar protocol for 5.50 minutes, achieving an estimated workload of _8.0 METS. The test was terminated due to dyspnea. The patient was given the imaging tracer at peak exercise followed by a 5 mL saline flush. The patient continued to exercise for one minute after injection. The patient's heart rate and blood pressure response was adequate. The resting ECG demonstrated NSR and the post stress ecg shows no ST changes and no ectopy. The patient was given 9.7 mCi of Tc-99m sestamibi IV for evaluation of myocardial function and perfusion rest. Approximately 30 minutes after injection, the patient underwent SPECT imaging. The stress images were acquired approximately 30 minutes after injection of 35.0 mCi of Tc-99m sestamibi IV. The stress SPECT study was also gated to evaluate regional wall motion and calculate the left ventricular ejection fraction. The data was reconstructed in short, horizontal long and vertical long axis views, and tomographic slices were generated. Findings: The overall technical quality of the images is good. Stress images demonstrated uniform uptake of activity all over the myocardium. The rest images demonstrated identical distribution of activity. The stress gated images demonstrated normal size and funciton of the left ventricle and the estimated ejection fraction is 62% with no wall motion abnormalities. Impression 1. Normal myocardial perfusion study 2. Normal size and function of the left ventricle 3. Ejection fraction is 62% without any wall motion abnormalities. Copy of Final Report Sent to: Zee Chowdhury Date of Interpretation: 03/15/2018 Date of Final Report: 03/16/2018 [facility] Patient Letteron 03-17-2018 Patient Letter March 17, 2018 RE: MANDEEP WASHINGTON [id number] [facility] [id number] FROM: THIS LETTER IS TO LET YOU KNOW THAT YOU MISSED AN APPOINTMENT WITH DR FOSTER ON MARCH 17, 2018. PLEASE CALL THE OFFICE AT [phone] IF YOU WOULD LIKE TO RESCHEDULE. THANK YOU, JP JUÁREZ MD [facility] Stress Test Reporton 018 Stress Test Report Patient: MANDEEP WASHINGTON Age: 52 years Sex: Male : 1965 Associated Diagnoses: None Author: CESAR SMART MD Date of Exam: 03/15/2018 Referring Physician: Dr. Vonda Foster Reason for Stress Test: Chest tightness Findings: 1. Baseline ECG revealed normal sinus rhythm with resting heart rate of 88 beats per minute without any ST segment abnormalities. 2. Resting blood pressure was 160/100 mmHg with normal response to the exercise. 3. The total exercise time was 5 minutes and 50 seconds with heart rate response of 94 percent. 4. This test was terminated because of fatigue and shortness of breath, no chest pain provoked. 5. The Cardiolite injected 1 minute prior to the termination of the test. 6. Twelve-lead ECG taken during the test did not reveal any ST segment abnormalities, isolated PVC couplet seen Conclusion: 1. No ST segment abnormalities seen during the stress test. 2. The SPECT images to follow separately. Electronically signed by Dr. Hebert Smart. Copy of Final Report Sent to: [] Date of Interpretation: 03/15/2018 Date of Final Report: 03/15/2018 Normal [facility] Vital Signs Date Time Vital Sign Value Performing Clinician Wilfredo godfrey 12-28-2023 14:31-0400 Body height 177.8 cm [facility] 12-28-2023 14:31-0400 Body mass index (BMI) [Ratio] 30.9 kg/m2 [facility] 12-28-2023 14:31-0400 Body temperature 98.1 [degF] [facility] 12-28-2023 14:31-0400 Body weight 97.97 kg [facility] 12-28-2023 14:31-0400 Diastolic blood pressure 80 mm[Hg] [facility] 12-28-2023 14:31-0400 Heart rate 105 /min [facility] 12-28-2023 14:31-0400 Respiratory rate 18 /min [facility] 12-28-2023 14:31-0400 SaO2% (BldA) [Mass fraction] 96 % [facility] 12-28-2023 14:31-0400 Systolic blood pressure 130 mm[Hg] [facility] 09-15-2023 17:09-0500 Body mass index (BMI) [Ratio] 31.2 kg/m2 [facility] 09-15-2023 17:09-0500 Body temperature 97.7 [degF] [facility] 09-15-2023 17:09-0500 Body weight 98.88 kg [facility] 09-15-2023 17:09-0500 Diastolic blood pressure 80 mm[Hg] [facility] 09-15-2023 17:09-0500 Heart rate 92 /min [facility] 09-15-2023 17:09-0500 Respiratory rate 18 /min [facility] 09-15-2023 17:09-0500 SaO2% (BldA) [Mass fraction] 96 % [facility] 09-15-2023 17:09-0500 Systolic blood pressure 150 mm[Hg] [facility] 05-20-2023 17:33-0400 Body height 177.8 cm [facility] 05-20-2023 17:33-0400 Body mass index (BMI) [Ratio] 32 kg/m2 [facility] 05-20-2023 17:33-0400 Body temperature 98.1 [degF] [facility] 05-20-2023 17:33-0400 Body weight 101.15 kg [facility] 05-20-2023 17:33-0400 Diastolic blood pressure 60 mm[Hg] [facility] 05-20-2023 17:33-0400 Heart rate 98 /min [facility] 05-20-2023 17:33-0400 Respiratory rate 18 /min [facility] 05-20-2023 17:33-0400 SaO2% (BldA) [Mass fraction] 98 % [facility] 05-20-2023 17:33-0400 Systolic blood pressure 100 mm[Hg] [facility] 05-20-2023 16:27-0400 Body mass index (BMI) [Ratio] 32 kg/m2 [facility] 05-20-2023 16:27-0400 Body weight 101.15 kg [facility] Encounters Encounter Date Encounter Type Care Provider Facility Start: 09-11-2024 End: 09-11-2024 ambulatory Ibis Chowdhury NP Facility:[facility] Start: 12-28-2023 End: 12-28-2023 ambulatory [facility] Work Phone: Start: 12-28-2023 End: 12-28-2023 Patient encounter procedure [facility] Spec[facility] Work Phone: Start: 12-28-2023 End: 12-28-2023 ambulatory Ibis Chowdhury [employer]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 Facility:[facility] Start: 05-20-2023 Patient encounter status [facility] Start: 05-19-2023 End: 05-19-2023 ambulatory [facility] Work Phone: Start: 05-19-2023 End: 05-19-2023 Patient encounter procedure [facility] Work Phone: Start: 11-21-2018 Patient encounter procedure JAVIER HARMAN [facility] Start: 11-06-2018 End: 11-06-2018 Patient encounter procedure JP RAMANAVARAPU Facility:[facility] Start: 04-17-2018 End: 04-17-2018 Patient encounter procedure JP RAMANAVARAPU Facility:[facility] Start: 03-31-2018 End: 04-01-2018 Patient encounter procedure JP RAMANAVARAPU Facility:[facility] Start: 03-15-2018 End: 03-16-2018 Patient encounter procedure JP RAMANAVARAPU Facility:[facility] Start: 02-23-2018 End: 02-24-2018 Patient encounter procedure JP RAMANAVARAPU Facility:[facility] Payers Date Payer Category Payer Self-pay [id number] 2023 Unknown [id number] 1909 Unknown ALLIED [employer] SYS *[employer] SP* [id number] Unknown COMMERCIAL OTHER [id number] Unknown [id number] Unknown [id number] Social History Date Type Detail Facility Start: 03-29-2020 End: 12-28-2023 Tobacco smoking status NHIS Unknown if ever smoked [facility] Start: 1965 Sex Assigned At Male [facility] Evaluation note Note Date & Type Note Facility Evaluation note Diagnosis Onset Date Hypertriglyceridemia acute Plantar fasciitis, right acu te Hypertension chronic Foot pain, left acute Plantar fasciitis, right acu te [facility] Work Phone: Evaluation note Note Date & Type Note Facility Evaluation note Diagnosis Onset Date Diverticulitis acute Lower abdominal pain acute Cough acute Hemorrhoids acute Maxillary sinusitis, acute a cute [facility] Work Phone: Summary Purpose Family History No Family History Records Found Relationship Condition Age at Onset Recorded Date/T sue Not Specified Diabetes mellitus Unknown Cardiac disease Unknown Malignant neoplasm of vertebral column Un known Hypertension Unknown Advance Directives No Advanced Directives Records FoundNo Advanced Directives Records FoundNo Advanced Directives Records Found Chief Complaint and Reason for Visit Chief Complaint medication refills R) Foot injection Reason for Visit Hypertriglyceridemia Plantar fasciitis, right Hypertension Foot pain, left Plantar fasciitis, right Chief Complaint Gut infection Sinus infection/labs Reason for Visit Diverticulitis Lower abdominal pain Cough Hemorrhoids Maxillary sinusitis, acute Additional Source Comments (unrecognized sect ion and content) No Status Records FoundNo Status Records FoundNo Status Records Found INFORMATION SOURCE (unrecogn ized section and content) DATE CREATED AUTHOR 11/07/2018 [facility] DATE CREATED AUTHOR AUTHOR'S ORGANIZ ATION 11/23/2018 [facility] DATE CREATED AUTHOR AUTHOR'S ORGANIZ ATION 10/03/2024 [facility] Care Teams (unrecognized sec tion and content) Team Status: Inactive Member Role Status Dates LUCAS De Santiago NP Attending Provider Active Team Status: Active Member Role Status Dates Ibis Chowdhury NP, NP-Alaina Primary Care Provider Active Team Status: Inactive Member Role Status Dates Ibis Chowdhury NP, NP-[place] Primary Care Provider, Attend ing Provider Active Goals (unrecognized section and content) Goals may be documented in a n alternate sectionGoals may be documented in an alternate section FOR RECORDS PERTAINING TO PATIENTS WHO ARE OR HAVE BEEN ENROLLED IN A CHEMICAL DEPENDENCY/SUBSTANCEABUSE PROGRAM, SOME INFORMATION MAY BE OMITTED. This clinical summary was aggregated from multiple sources. Caution should be exercised in using it in the provision of clinical care. This summary normalizes information from multiple sources, and as a consequence, information in this document may materially change the coding, format and clinical context of patient data. In addition, data may be omitted in some cases. CLINICAL DECISIONS SHOULD BE BASED ON THE PRIMARY CLINICAL RECORDS. [facility] [employer] [facility]. provides no warranty or guarantee of the accuracy or completeness of information in this document.
[2025-07-13 22:04] LABS: Hematocrit 44.8 % (40-54); Hemoglobin 15.2 g/dL (13.0-16.5); Immature Granulocytes Count 0.040 X10^3/uL (0.0-0.0); Mean Corp Hgb Conc 33.9 g/dL (32-36); Mean Corpuscular Volume 91.6 fL (80-94); Mean Platelet Vol. 10.3 fl (6.2-12.0); NRBC Flagged by Analyzer 0 % (0-5); Platelet Count 206 K/mm3 (150-450); RBC Distribution Width CV 11.6 % (11.6-14.6); RBC Distribution Width SD 39.2 fl (35.1-43.9); Red Blood Count 4.89 M/mm3 (4.6-6.2); White Blood Count 8.5 K/mm3 (4.4-11.0)
[2025-07-13 23:00] LABS: AST(SGOT) 18 U/L (<=37); Alanine Aminotransfer ALT/SGPT 21 U/L (<=46); Albumin, Serum 4.6 g/dL (3.4-4.8); Alkaline Phosphatase 79 U/L (40-129); Anion Gap 11 (5-15); BUN 18 mg/dL (4-19); BUN/Creat Ratio 21.8 RATIO (10-20); Calcium,Total 9.7 mg/dL (7.6-11.0); Carbon Dioxide 24.5 mmol/L (21.0-32.0); Chloride 104 mmol/L (98-108); Cholesterol 145 mg/dL (<=200); Globulin 2.4 g/dL (2.2-4.2); Glucose 111 mg/dL (70-99); Low Density Lipoprotein Calc. 72 mg/dL; PSA,Total- Diagnostic 0.82 ng/mL (0.00-4.00); Potassium 4.2 mmol/L (3.3-5.1); Triglycerides 220 mg/dL; Very Low Density Lipoprotein 44 mg/dL (5-40); cholesterol:hdl ratio screen 3.93
== END | disposition home or self-care (01) ==
LOC: LABSPEC 21:45
PROVIDERS: PCP Nurse Practitioner; Visit Provider Nurse Practitioner
DX: I10 Essential (primary) hypertension (principal); E78.1 Pure hyperglyceridemia; R35.0 Frequency of micturition
CPT/HCPCS: 80053; 80061; 84153; 85025